=== PATIENT | male | born 1950 | race Caucasian/White ===

== ENCOUNTER 2017-06-25 13:26 | Emergency (ER) | payer MEDICAID, MEDICARE ==
[2017-06-25 14:38] LABS: ABSOLUTE BASOPHILS # (AUTO) 0.1 10^3/uL (0.0-0.2); ABSOLUTE EOSINOPHILS # (AUTO) 0.3 10^3/uL (0.0-0.6); ABSOLUTE LYMPHOCYTES (AUTO) 1.2 10^3/uL (0.5-4.7); ABSOLUTE MONOCYTES (AUTO) 0.8 10^3/uL (0.1-1.4); ABSOLUTE NEUT (AUTO) 5.2 10^3/uL (1.7-8.2); BASOPHILS % (AUTO) 0.9 % (0-2); EOSINOPHILS % (AUTO) 4.6 % (0-6); HEMATOCRIT 40.9 % (37.9-51.0); HEMOGLOBIN 13.5 g/dL (13.5-17.0); LYMPHOCYTES % (AUTO) 16.1 % (13-45); MEAN CORPUSCULAR HEMOGLOBIN 26.6 pg (27.0-33.4); MEAN CORPUSCULAR HGB CONC 32.9 g/dL (32.0-36.0); MEAN CORPUSCULAR VOLUME 81 fl (80-97); MONOCYTES % (AUTO) 10.1 % (3-13); PLATELET COUNT 189 10^3/uL (150-450); RED BLOOD COUNT 5.07 10^6/uL (4.35-5.55); RED CELL DISTRIBUTION WIDTH 14.9 % (11.5-14.0); SEGMENTED NEUTROPHILS % (AUTO) 68.3 % (42-78); TOTAL CELLS COUNTED % (AUTO) 100 %; WHITE BLOOD COUNT 7.6 10^3/uL (4.0-10.5)
[2017-06-25 14:59] LABS: ANION GAP 12 (5-19); BLOOD UREA NITROGEN 14 mg/dL (7-20); CALCIUM 9.6 mg/dL (8.4-10.2); CARBON DIOXIDE 25 mmol/L (22-30); CHLORIDE 102 mmol/L (98-107); GLUCOSE 173 mg/dL (75-110); POTASSIUM 4.1 mmol/L (3.6-5.0); SODIUM 138.8 mmol/L (137-145)
--- NOTE | 2017-06-25 15:24 | ER Document Report ---
ED Extremity Problem, Lower - General Chief Complaint: Leg Swelling Stated Complaint: POSSIBLE CLOT Time Seen by Provider: 06/25/17 14:03 Mode of Arrival: Ambulatory Information source: Patient Notes: Patient presents with right lower extremity bruising and swelling. He currently resides in a rehab facility. He denies any known injuries. He states the facility was concerned about a blood clot so they referred him here to the emergency department. He states he does have a dull ache just behind the right knee. It is constant. Nothing makes it better or worse. It does not radiate. He denies any chest pain or shortness of breath. TRAVEL OUTSIDE OF THE [place] IN LAST 30 DAYS: No - Related Data Allergies/Adverse Reactions: esomeprazole [From Nexium] Adverse Reaction (Verified 11/09/15 11:35) upset stomach Past Medical History - General Information source: Patient - Social History Smoking Status: Never Smoker Frequency of alcohol use: None Drug Abuse: None Family History: Reviewed & Not Pertinent Patient has suicidal ideation: No Patient has homicidal ideation: No - Past Medical History Cardiac Medical History: Reports: Hx Hypercholesterolemia, Hx Hypertension Pulmonary Medical History: Reports: Hx Sleep Apnea Endocrine Medical History: Reports: Hx Diabetes Mellitus Type 2 Renal/ Medical History: Denies: Hx Peritoneal Dialysis Musculoskeltal Medical History: Reports Hx Arthritis Psychiatric Medical History: Reports: Hx Depression Past Surgical History: Reports: Hx Appendectomy, Hx Cardiac Surgery - pacer, Hx Orthopedic Surgery - back, both knees, - Immunizations Hx Pneumococcal Vaccination: 05/08/15 Review of Systems - Review of Systems Constitutional: denies: Chills, Fever Cardiovascular: denies: Chest pain, Palpitations Respiratory: denies: Cough, Short of breath Physical Exam - Vital signs Vitals: Temp Pulse Resp BP Pulse Ox 98.7 F 87 20 160/80 H 95 06/25/17 13:30 06/25/17 13:30 06/25/17 13:30 06/25/17 13:30 06/25/17 13:30 Interpretation: Normal - General General appearance: Appears well, Alert In distress: None - HEENT Head: Normocephalic, Atraumatic Eyes: Normal Pupils: PERRL - Respiratory Respiratory status: No respiratory distress Chest status: Nontender Breath sounds: Normal Chest palpation: Normal - Cardiovascular Rhythm: Regular Heart sounds: Normal auscultation Murmur: No - Abdominal Inspection: Normal Distension: No distension Bowel sounds: Normal Tenderness: Nontender Organomegaly: No organomegaly - Back Back: Normal, Nontender - Extremities General upper extremity: Normal inspection, Nontender, Normal color, Normal ROM , Normal temperature General lower extremity: Nontender, Normal ROM, Normal temperature, Normal weight bearing, Other - Patient has diffuse nontender ecchymosis on the left inner upper thigh.. No: Namrata's sign - Neurological Neuro grossly intact: Yes Cognition: Normal Orientation: AAOx4 Dee Coma Scale Eye Opening: Spontaneous [place] Coma Scale Verbal: Oriented [place] Coma Scale Motor: Obeys Commands [place] Coma Scale Total: 15 Speech: Normal Sensory: Normal - Psychological Associated symptoms: Normal affect, Normal mood - Skin Skin Temperature: Warm Skin Moisture: Dry Skin Color: Normal Course - Vital Signs Vital signs: Temp Pulse Resp BP Pulse Ox 98.7 F 87 20 160/80 H 95 06/25/17 13:30 06/25/17 13:30 06/25/17 13:30 06/25/17 13:30 06/25/17 13:30 - Laboratory Result Diagrams: 06/25/17 14:20 06/25/17 14:20 Laboratory results interpreted by me: 06/25/17 06/25/17 14:20 14:20 MCH 26.6 L RDW 14.9 H Glucose 173 H - Diagnostic Test Radiology reviewed: Image reviewed, Reports reviewed - Doppler ultrasound was reviewed and shows no evidence of DVT. Discharge - Discharge Clinical Impression: Contusion of right leg Qualifiers: Encounter type: initial encounter Qualified Code(s): S80.11XA - Contusion of right lower leg, initial encounter Condition: Stable Disposition: HOME, SELF-CARE Instructions: Contusion ([facility])
[2017-06-25 15:55] VITALS: BP 148/85
--- NOTE | 2017-06-25 15:56 | RADIOLOGY REPORT (SQ) ---
EXAM DESCRIPTION: VENOUS UNILATERAL LOWER COMPLETED DATE/TIME: 06/25/2017 3:32 pm REASON FOR STUDY: right leg swelling/apin COMPARISON: None. TECHNIQUE: Dynamic and static hilton scale and color images acquired of the right leg venous system. S elected spectral images acquired with additional compression and augmentation maneuvers. The contrala teral common femoral vein and saphenofemoral junction were also imaged. Images stored on PACS. LIMITATIONS: None. FINDINGS: RIGHT COMMON FEMORAL: Normal phasicity, compression and augmentation. No visualized echogenic material on g ray scale. No defects on color images. FEMORAL: Normal compression and augmentation. No visualized echogenic material on hilton scale. No defe cts on color images. POPLITEAL: Normal compression, augmentation. No visualized echogenic material on hilton scale. No defec ts on color images. CALF VESSELS: Normal compression, augmentation. No visualized echogenic material on hilton scale. No de fects on color images. GSV and SSV: Normal compression, augmentation. No visualized echogenic material on hilton scale. No def ects on color images. ANY DEEP VENOUS INSUFFICIENCY: Not evaluated. ANY EVIDENCE OF POPLITEAL CYST: No. OTHER: No other significant finding. LEFT COMMON FEMORAL VEIN AND SAPHENOFEMORAL JUNCTION: Normal phasicity, compression and augmentation. No visualized echogenic material on hilton scale. No de fects on color images. IMPRESSION: NO EVIDENCE OF DVT OR SVT IN THE RIGHT LEG. TECHNICAL DOCUMENTATION: JOB ID: [id number] [employer]- All Rights Reserved Reading location - IP/workstation name: [facility]
== END 2017-06-25 16:18 | disposition home or self-care (01) ==
LOC: ER 13:26
DX: S80.11XA Contusion of right lower leg, initial encounter (principal); X58.XXXA Exposure to other specified factors, initial encounter; R58 Hemorrhage, not elsewhere classified; E11.9 Type 2 diabetes mellitus without complications; I10 Essential (primary) hypertension
CPT/HCPCS: 36415; 80048; 85025; 93971; 99284

== ENCOUNTER 2017-07-07 21:37 | Emergency (ER) | payer MEDICAID, MEDICARE ==
[2017-07-07 22:22] LABS: HEMATOCRIT 39.2 % (37.9-51.0); HEMOGLOBIN 13.2 g/dL (13.5-17.0); MEAN CORPUSCULAR HEMOGLOBIN 26.9 pg (27.0-33.4); MEAN CORPUSCULAR HGB CONC 33.6 g/dL (32.0-36.0); MEAN CORPUSCULAR VOLUME 80 fl (80-97); PLATELET COUNT 174 10^3/uL (150-450); RED CELL DISTRIBUTION WIDTH 14.6 % (11.5-14.0); WHITE BLOOD COUNT 8.2 10^3/uL (4.0-10.5)
[2017-07-07 22:41] LABS: ANION GAP 10 (5-19); BLOOD UREA NITROGEN 19 mg/dL (7-20); CALCIUM 9.3 mg/dL (8.4-10.2); CARBON DIOXIDE 27 mmol/L (22-30); CHLORIDE 100 mmol/L (98-107); GLUCOSE 156 mg/dL (75-110); SODIUM 136.5 mmol/L (137-145)
--- NOTE | 2017-07-07 22:49 | RADIOLOGY REPORT (SQ) ---
EXAM DESCRIPTION: CHEST SINGLE VIEW COMPLETED DATE/TIME: 07/07/2017 10:33 pm REASON FOR STUDY: cp COMPARISON: 11/09/2015 EXAM PARAMETERS: NUMBER OF VIEWS: One view. TECHNIQUE: Single frontal radiographic view of the chest acquired. RADIATION DOSE: NA LIMITATIONS: None. FINDINGS: LUNGS AND PLEURA: No opacities, masses or pneumothorax. No pleural effusion. MEDIASTINUM AND HILAR STRUCTURES: No masses. Contour normal. HEART AND VASCULAR STRUCTURES: Heart normal in size. Normal vasculature. BONES: No acute findings. HARDWARE: Cardiac pacer. OTHER: No other significant finding. IMPRESSION: NO ACUTE RADIOGRAPHIC FINDING IN THE CHEST. TECHNICAL DOCUMENTATION: JOB ID: [id number] [employer]- All Rights Reserved Reading location - IP/workstation name: [email or web address]
--- NOTE | 2017-07-08 00:15 | ER Document Report ---
ED General - General Chief Complaint: Chest Pain Stated Complaint: CHEST PAIN Time Seen by Provider: 07/07/17 21:45 Notes: Patient is a 67 year old male with a past medical history of recurrent chest pain, hypertension, hyperlipidemia, diabetes, recently evaluated for a stress test by Dr. Sinha in May with a normal result who presents with chest pain that started at approximately 7 PM and resolved by 830. He states the pain was a stabbing, sharp pain over the left side of his chest with radiation to the left upper extremity. Nothing improves or worsen the pain when present. It did resolve spontaneously. He denies any associated shortness of breath, nausea or vomiting. He states that he has recurrent episodes of chest pain very similar to this. He notes that it has been worse since he was discontinued off of his antacid therapy. He denies any chest pain at the time of my assessment. Patient has had 3 cardiac catheterizations since 2008 none of which have shown any coronary artery disease. TRAVEL OUTSIDE OF THE [place] IN LAST 30 DAYS: No - Related Data Allergies/Adverse Reactions: esomeprazole [From Nexium] Adverse Reaction (Verified 11/09/15 11:35) upset stomach Past Medical History - General Information source: Patient - Social History Smoking Status: Former Smoker Chew tobacco use (# tins/day): No Frequency of alcohol use: None Drug Abuse: None Lives with: [facility] Family History: Reviewed & Not Pertinent Patient has suicidal ideation: No Patient has homicidal ideation: No - Past Medical History Cardiac Medical History: Reports: Hx Hypercholesterolemia, Hx Hypertension Pulmonary Medical History: Reports: Hx Sleep Apnea Endocrine Medical History: Reports: Hx Diabetes Mellitus Type 2 Renal/ Medical History: Denies: Hx Peritoneal Dialysis Musculoskeltal Medical History: Reports Hx Arthritis Psychiatric Medical History: Reports: Hx Depression Past Surgical History: Reports: Hx Appendectomy, Hx Cardiac Surgery - pacer, Hx Orthopedic Surgery - back, both knees, - Immunizations Hx Pneumococcal Vaccination: 05/08/15 Review of Systems - Review of Systems Notes: Constitutional: Negative for fever. HENT: Negative for sore throat. Eyes: Negative for visual changes. Cardiovascular: Positive for chest pain. Respiratory: Negative for shortness of breath. Gastrointestinal: Negative for abdominal pain, vomiting or diarrhea. Genitourinary: Negative for dysuria. Musculoskeletal: Negative for back pain. Skin: Negative for rash. Neurological: Negative for headaches, weakness or numbness. 10 point ROS negative except as marked above and in HPI. Physical Exam - Vital signs Vitals: Resp Pulse Ox 16 93 07/07/17 21:57 07/07/17 21:57 Interpretation: Normal Notes: PHYSICAL EXAMINATION: GENERAL: Well-appearing, well-nourished and in no acute distress. HEAD: Atraumatic, normocephalic. EYES: Pupils equal round and reactive to light, extraocular movements intact, sclera anicteric, conjunctiva are normal. ENT: nares patent, oropharynx clear without exudates. Moist mucous membranes. NECK: Normal range of motion, supple without lymphadenopathy LUNGS: Breath sounds clear to auscultation bilaterally and equal. No wheezes rales or rhonchi. HEART: Regular rate and rhythm without murmurs ABDOMEN: Soft, nontender, normoactive bowel sounds. No guarding, no rebound. No masses appreciated. EXTREMITIES: Normal range of motion, no pitting or edema. No cyanosis. NEUROLOGICAL: No focal neurological deficits. Moves all extremities spontaneously and on command. PSYCH: Normal mood, normal affect. SKIN: Warm, Dry, normal turgor, no rashes or lesions noted. Course - Re-evaluation Re-evalutation: 07/08/17 00:13 Presentation of chest pain in an otherwise well appearing patient. Low clinical suspicion for ACS given clinical history, exam, EKG without ST elevations or depressions, and negative initial troponin. Patient had a normal stress test less than 2 months ago and has had 3 negative cardiac caths in the last 8 years. PE also seems unlikely given clinical history, absence of tachycardia or dyspnea. Well's score is 0. CXR without evidence of pneumothorax or pneumonia. No widened mediastinum. Aortic dissection also seems unlikely given history, symmetric pulses, CXR, and vitals. Will obtain repeat delta troponin and if this remains normal plan for discharge. 07/08/17 02:21 Troponin remains normal. Patient remains chest pain-free. At this time will discharge with return precautions and follow-up recommendations. Verbal discharge instructions given a the bedside and opportunity for questions given. Medication warnings reviewed. Patient is in agreement with this plan and has verbalized understanding of return precautions and the need for primary care follow-up in the next 24-72 hours. - Vital Signs Vital signs: Temp Pulse Resp BP Pulse Ox 20 121/75 96 07/07/17 23:01 07/07/17 23:01 07/07/17 23:01 - Laboratory Result Diagrams: 07/07/17 22:11 07/07/17 22:11 Laboratory results interpreted by me: 07/07/17 07/07/17 22:11 22:11 Hgb 13.2 L MCH 26.9 L RDW 14.6 H Sodium 136.5 L Glucose 156 H - Diagnostic Test Radiology reviewed: Image reviewed, Reports reviewed Radiology results interpreted by me: 07/08/17 00:14 Chest x-ray: No acute infiltrate or pneumothorax - EKG Interpretation by Me Additional EKG results interpreted by me: 07/08/17 00:14 Sinus rhythm. Rate 75. No ST elevations or depressions. QTC is 441. Discharge - Discharge Clinical Impression: Chest pain Qualifiers: Chest pain type: unspecified Qualified Code(s): R07.9 - Chest pain, unspecified Condition: Good Disposition: HOME, SELF-CARE Additional Instructions: You were seen today for chest pain. The exact cause of your pain is unclear. However, based on your cardiac enzyme testing, chest x-ray, and EKG it does not appear that it is from an immediately life-threatening cause at this time. Although your testing here is normal is critical that you follow-up with your primary care physician for continued evaluation of this chest pain. I recommended you see your physician within the next 24-48 hours to be evaluated for consideration of a stress test. Please return to emergency department immediately if you have worsening of your chest pain, shortness of breath, vomiting, become unable to exert yourself due to pain or difficulty breathing, you pass out, or have any pain that radiates into your arms, jaw, or back. Please also return if you have any additional symptoms that are concerning to you.
[2017-07-08] MEDS ORDERED: FAMOTIDINE 20 MG TABLET PO ONE (02:21)
[2017-07-08 06:53] VITALS: BP 151/87
--- NOTE | 2017-07-08 10:48 | EKG REPORT ---
SEVERITY:- ABNORMAL ECG - SINUS RHYTHM IVCD, CONSIDER ATYPICAL RBBB LVH WITH IVCD AND SECONDARY REPOL ABNRM : Confirmed by: Nadege Sinha 08-Jul-2017 10:47:14
== END 2017-07-08 06:59 | disposition home or self-care (01) ==
LOC: ER 21:37
DX: R07.9 Chest pain, unspecified (principal); I10 Essential (primary) hypertension; E11.9 Type 2 diabetes mellitus without complications; Z87.891 Personal history of nicotine dependence
CPT/HCPCS: 93005; 99285; 36415; 85027; 80048; 84484; 71045; 93010; A9270

== ENCOUNTER → 2017-09-04 | Outpatient (CLI) | payer MEDICARE, MEDICAID ==
--- NOTE | 2017-09-04 15:48 | RADIOLOGY REPORT (SQ) ---
EXAM DESCRIPTION: CT LUMBAR SPINE WITHOUT COMPLETED DATE/TIME: 09/04/2017 3:12 pm REASON FOR STUDY: OTHER INTERVERTEBRAL DISC DEGENERATION, LUMBAR REGION M51.36 OTHER INTERVERTEBRAL DISC DEGENERATION, LUMBAR REGION COMPARISON: Lumbar spine five views 10/20/2015 TECHNIQUE: Axial images acquired through the lumbar spine without intravenous contrast. Images revi ewed with lung, soft tissue and bone windows. Reconstructed coronal and sagittal MPR images reviewed . All images stored on PACS. All CT scanners at this facility use dose modulation, iterative reconstruction, and/or weight based d osing when appropriate to reduce radiation dose to as low as reasonably achievable (ALARA). [facility]: Dose Right [facility]: CareDose [facility]: Dose Right [facility]: Teradose 4D [facility]: [employer] RADIATION DOSE: 30.3 mGy. LIMITATIONS: None. FINDINGS: SEGMENTATION: Normal. No transitional anatomy. ALIGNMENT: 25% anterolisthesis of L4 over L5 is present, stabilized with bilateral transpedicular scr ews and dorsal fixation plates. Mild retrolisthesis of L1 over L2. VERTEBRAL BODIES: No fractures. No dislocation. No acute findings. DISCS: T11-12 is unremarkable. At T12-L1, mild diffuse posterior disc bulge and bony spurring is present left greater than right. M ild bilateral facet hypertrophy. Borderline central canal narrowing. Moderate bilateral foraminal n arrowing. At L1-2, mild diffuse posterior disc bulge and bony spurring and mild bilateral facet and ligament hy pertrophy are present with mild central canal narrowing. Moderate to high-grade bilateral foraminal narrowing is present. At L2-3, mild diffuse posterior disc bulge and bony spurring, mild bilateral facet hypertrophy is pre sent with an old calcified right paracentral disc protrusion/herniation. This causes mild central ca nal narrowing, and flattening of the thecal sac near the takeoff of the right proximal L3 nerve root. Elsewhere at L2-3, there is moderate right and mild left foraminal narrowing without definite exiti ng L2 nerve root impingement. At L3-4, borderline central canal narrowing results from broad diffuse disc bulge and mild facet and ligament hypertrophy. No significant foraminal encroachment. At L4-5, patient is post fusion with bone graft material, transpedicular screws and dorsal fixation p lates. There is 25% anterolisthesis of L4 over L5 with moderate right and high-grade left foraminal stenosis from bony spurring. At L5-S1, disc space loss of height is present with broad diffuse posterior disc bulging. Mild bilat eral facet hypertrophy. No central stenosis. Moderate right, moderate left foraminal narrowing. PEDICLES, TRANSVERSE PROCESSES: No fractures. No dislocation. No acute findings. FACETS, POSTERIOR ELEMENTS: No fractures. No dislocation. HARDWARE: Fusion hardware at L4-5 VISUALIZED RIBS: No fractures. SOFT TISSUES: No significant or acute finding in adjacent soft tissues. OTHER: No other significant finding. IMPRESSION: Multilevel degenerative changes as above. Postsurgical changes at L4-5. TECHNICAL DOCUMENTATION: JOB ID: [id number] Quality ID # [id number]: Final reports with documentation of one or more dose reduction techniques (e.g., Au tomated exposure control, adjustment of the mA and/or kV according to patient size, use of iterative reconstruction technique) 2010 [employer]- All Rights Reserved Reading location - IP/workstation name: [facility]
== END ==
LOC: RAD 14:16
PROVIDERS: ATTEND Physician Assistant
DX: M51.36 Other intervertebral disc degeneration, lumbar region (principal); G62.9 Polyneuropathy, unspecified
CPT/HCPCS: 72131

== ENCOUNTER 2017-12-11 08:22 | Emergency (ER) | payer MEDICARE, MEDICAID ==
--- NOTE | 2017-12-11 09:35 | ER Document Report ---
ED Medical Screen (RME) - General Chief Complaint: Medication Refill Stated Complaint: SUICIDAL IDEATIONS Time Seen by Provider: 12/11/17 09:30 Notes: Patient is here because he is out of all of his medications. Patient says he was a resident in [facility] locally for about 6 months and signed himself out of the facility last Friday, 6 days ago, because he thought he could manage alone on his own at home. When he signed himself out, they did not write for any of his medications because they said they thought he was delusional. Therefore, he has been 6 days without any medicines. Patient has a history of NIDDM, Parkinson's disease, hypertension, high cholesterol. Patient says he has no history of any psychiatric diseases. Has given passing thoughts of suicide in the past so as not to be a bother to his son, but does not present with suicidal ideation is 1 of his thoughts today. TRAVEL OUTSIDE OF THE [place] IN LAST 30 DAYS: No - Related Data Allergies/Adverse Reactions: esomeprazole [From Nexium] Adverse Reaction (Verified 11/09/15 11:35) upset stomach Past Medical History - Past Medical History Cardiac Medical History: Reports: Hx Hypercholesterolemia, Hx Hypertension Pulmonary Medical History: Reports: Hx Sleep Apnea Endocrine Medical History: Reports: Hx Diabetes Mellitus Type 2 Renal/ Medical History: Denies: Hx Peritoneal Dialysis Musculoskeltal Medical History: Reports Hx Arthritis Psychiatric Medical History: Reports: Hx Depression Past Surgical History: Reports: Hx Appendectomy, Hx Cardiac Surgery - pacer, Hx Orthopedic Surgery - back, both knees, Doctor's Discharge - Discharge Referrals: JOSEPH JOSEPH DO [Primary Care Provider] - Follow up as needed
--- NOTE | 2017-12-11 10:32 | ER Document Report ---
ED General - General Chief Complaint: Medication Refill Stated Complaint: SUICIDAL IDEATIONS Time Seen by Provider: 12/11/17 09:30 Information source: Patient Notes: Patient is a 67-year-old male who presents here secondary to medication refill request. Patient supposedly was at the [facility] until 6 days ago when he voluntarily signed himself out. Cord to the patient's report he states that they did not fill his medications because they thought he was "delusional". Patient currently denies any suicidal or homicidal ideations. TRAVEL OUTSIDE OF THE [place] IN LAST 30 DAYS: No - Related Data Allergies/Adverse Reactions: esomeprazole [From Nexium] Adverse Reaction (Verified 11/09/15 11:35) upset stomach Past Medical History - Social History Smoking Status: Never Smoker Chew tobacco use (# tins/day): No Family History: Reviewed & Not Pertinent - Past Medical History Cardiac Medical History: Reports: Hx Hypercholesterolemia, Hx Hypertension Pulmonary Medical History: Reports: Hx Sleep Apnea Endocrine Medical History: Reports: Hx Diabetes Mellitus Type 2 Renal/ Medical History: Denies: Hx Peritoneal Dialysis Musculoskeletal Medical History: Reports Hx Arthritis Psychiatric Medical History: Reports: Hx Depression Past Surgical History: Reports: Hx Appendectomy, Hx Cardiac Surgery - pacer, Hx Orthopedic Surgery - back, both knees, - Immunizations Hx Pneumococcal Vaccination: 05/08/15 Physical Exam - Vital signs Vitals: Temp Pulse Resp BP Pulse Ox 97.4 F 78 18 167/77 H 95 12/11/17 10:16 12/11/17 10:16 12/11/17 10:16 12/11/17 10:16 12/11/17 10:16 Course - Re-evaluation Re-evalutation: Given the above history and physical examination, we will call case management, obtain basic labs, and reassess the patient. Patient currently has no complaints of chest or abdominal pain. No headache, weakness, or lightheadedness. No focal neurological deficits on my initial examination. 12/11/17 10:31 EKG shows heart of 63, normal sinus rhythm, left ventricular hypertrophy, inverted T waves laterally. 12/11/17 10:33 I have reviewed the patient's previous EKG on July 2017 showing no appreciable change. Labs as recorded. They are attempting to find placement for the patient. We have restarted the patient's medications. - Vital Signs Vital signs: Temp Pulse Resp BP Pulse Ox 97.4 F 64 18 147/71 H 93 12/11/17 10:16 12/11/17 15:40 12/11/17 10:16 12/11/17 15:40 12/11/17 15:40 - Laboratory Result Diagrams: 12/11/17 10:00 12/11/17 10:00 Laboratory results interpreted by me: 12/11/17 12/11/17 12/11/17 09:48 10:00 10:00 RDW 14.8 H Glucose 162 H Urine Glucose (UA) >=1000 H Urine Urobilinogen 2.0 H Salicylates Acetaminophen 12/11/17 10:00 RDW Glucose Urine Glucose (UA) Urine Urobilinogen Salicylates < 1.0 L Acetaminophen < 10 L Discharge - Discharge Referrals: JOSEPH JOSEPH DO [NO LOCAL MD] - Follow up as needed
[2017-12-11 10:41] LABS: ABSOLUTE EOSINOPHILS # (AUTO) 0.1 10^3/uL (0.0-0.6); ABSOLUTE LYMPHOCYTES (AUTO) 1.2 10^3/uL (0.5-4.7); ABSOLUTE MONOCYTES (AUTO) 0.8 10^3/uL (0.1-1.4); ABSOLUTE NEUT (AUTO) 6.6 10^3/uL (1.7-8.2); BASOPHILS % (AUTO) 0.5 % (0-2); EOSINOPHILS % (AUTO) 1.3 % (0-6); HEMATOCRIT 44.1 % (37.9-51.0); HEMOGLOBIN 14.9 g/dL (13.5-17.0); LYMPHOCYTES % (AUTO) 13.5 % (13-45); MEAN CORPUSCULAR HEMOGLOBIN 27.3 pg (27.0-33.4); MEAN CORPUSCULAR HGB CONC 33.8 g/dL (32.0-36.0); MEAN CORPUSCULAR VOLUME 81 fl (80-97); MONOCYTES % (AUTO) 9.1 % (3-13); PLATELET COUNT 186 10^3/uL (150-450); RED BLOOD COUNT 5.46 10^6/uL (4.35-5.55); RED CELL DISTRIBUTION WIDTH 14.8 % (11.5-14.0); SEGMENTED NEUTROPHILS % (AUTO) 75.6 % (42-78); TOTAL CELLS COUNTED % (AUTO) 100 %; WHITE BLOOD COUNT 8.8 10^3/uL (4.0-10.5)
[2017-12-11 10:59] LABS: ALANINE AMINOTRANSFERASE 26 U/L (21-72); ALBUMIN 4.4 g/dL (3.5-5.0); ALKALINE PHOSPHATASE 74 U/L (38-126); ANION GAP 10 (5-19); ASPARTATE AMINO TRANSFERASE 20 U/L (17-59); BILIRUBIN,DIRECT 0.2 mg/dL (0.0-0.4); BILIRUBIN,TOTAL 0.6 mg/dL (0.2-1.3); BLOOD UREA NITROGEN 15 mg/dL (7-20); CALCIUM 9.5 mg/dL (8.4-10.2); CARBON DIOXIDE 24 mmol/L (22-30); CHLORIDE 103 mmol/L (98-107); GLUCOSE 162 mg/dL (75-110); POTASSIUM 4.6 mmol/L (3.6-5.0); SODIUM 137.3 mmol/L (137-145); TOTAL PROTEIN 7.2 g/dL (6.3-8.2)
--- NOTE | 2017-12-11 11:14 | ER Document Report ---
ED General - General Chief Complaint: Medication Refill Stated Complaint: SUICIDAL IDEATIONS Time Seen by Provider: 12/11/17 09:30 Information source: Patient Notes: 67-year-old male with past medical history as recorded who presents today stating that he willingly left the [facility] 6 days ago. Patient states he had a nose that he had hired in [place] that he had met online that was going to come take care of him. Patient states over the last few days she has gotten a better offer [facility] to teach so therefore is not coming to this location. Patient states that they did not provide any medications upon his leaving the previous facility secondary to what he states was "the providers concerned that I was having delusions and possibly was suicidal". Patient denies any headache, neck pain, chest pain, abdominal pain, weakness or numbness. He states that he does not feel that he is fit to take care of himself. Patient states he does not want to be a burden to his son who is local because his son also has medical problems. He also states that he has thoughts of injuring himself by overdosing on medications if he has no other options. TRAVEL OUTSIDE OF THE [place] IN LAST 30 DAYS: No - HPI Onset: Other - See above Quality of pain: No pain Severity: None Pain Level: Denies Associated symptoms: Other - See above Exacerbated by: Denies Relieved by: Denies Similar symptoms previously: Yes Recently seen / treated by doctor: Yes - Related Data Allergies/Adverse Reactions: esomeprazole [From Nexium] Adverse Reaction (Verified 11/09/15 11:35) upset stomach Past Medical History - General Information source: Patient - Social History Smoking Status: Unknown if Ever Smoked Cigarette use (# per day): No Chew tobacco use (# tins/day): No Family History: Reviewed & Not Pertinent - Past Medical History Cardiac Medical History: Reports: Hx Hypercholesterolemia, Hx Hypertension Pulmonary Medical History: Reports: Hx Sleep Apnea Endocrine Medical History: Reports: Hx Diabetes Mellitus Type 2 Renal/ Medical History: Denies: Hx Peritoneal Dialysis Musculoskeletal Medical History: Reports Hx Arthritis Psychiatric Medical History: Reports: Hx Depression Past Surgical History: Reports: Hx Appendectomy, Hx Cardiac Surgery - pacer, Hx Orthopedic Surgery - back, both knees, - Immunizations Hx Pneumococcal Vaccination: 05/08/15 Review of Systems - Review of Systems Constitutional: denies: Fever EENT: denies: Eye discharge, Nose discharge Respiratory: denies: Short of breath Gastrointestinal: denies: Vomiting Genitourinary: denies: Dysuria Musculoskeletal: denies: Leg swelling Skin: Other - no hives. denies: Rash Neurological/Psychological: Other - no slurred speech -: Yes All other systems reviewed and negative Physical Exam - Vital signs Vitals: Temp Pulse Resp BP Pulse Ox 97.4 F 78 18 167/77 H 95 12/11/17 10:16 12/11/17 10:16 12/11/17 10:16 12/11/17 10:16 12/11/17 10:16 Notes: Reviewed vital signs and nursing note as charted by RN. CONSTITUTIONAL: Alert and oriented and responds appropriately to questions. Well -appearing; well-nourished HEAD: Normocephalic; atraumatic EYES: PERRL; patient has some mild left eye lateral deviation consistent with prior surgery and medical history ENT: Normal nose; no rhinorrhea; moist mucous membranes; pharynx without lesions noted NECK: Supple without meningismus; non-tender; carotid bruits; no cervical lymphadenopathy, no masses CARD: Regular rate and rhythm; no murmurs, no gallops; symmetric distal pulses RESP: Normal chest excursion without splinting or tachypnea; breath sounds clear and equal bilaterally ABD/GI: Normal bowel sounds; non-distended; soft, non-tender BACK: The back appears normal and is non-tender to palpation, there is no CVA tenderness EXT: Normal ROM in all joints; non-tender to palpation; no cyanosis, no effusions, no edema SKIN: Small healing abrasions to bilateral shins with the patient states she sustained when moving into his new apartment NEURO: Moves all extremities equally; Motor and sensory function intact PSYCH: The patient's mood and manner are appropriate. Grooming and personal hygiene are appropriate. Course - Re-evaluation Re-evalutation: 12/11/17 11:14 Given the history and physical examination, the patient currently oriented 4, we will attempt to find the patient's medication list and restart the medications. I have consulted social work in order the basic psychiatric profile laboratory values and consult with the psychology team. We would like to find placement for this patient and start the patient back on his medications. 12/11/17 14:14 Labs as recorded. No change in exam. Social work and the psychology team are evaluating the patient. - Vital Signs Vital signs: Temp Pulse Resp BP Pulse Ox 97.4 F 78 18 167/77 H 95 12/11/17 10:16 12/11/17 10:16 12/11/17 10:16 12/11/17 10:16 12/11/17 10:16 - Laboratory Result Diagrams: 12/11/17 10:00 12/11/17 10:00 Laboratory results interpreted by me: 12/11/17 12/11/17 12/11/17 09:48 10:00 10:00 RDW 14.8 H Glucose 162 H Urine Glucose (UA) >=1000 H Urine Urobilinogen 2.0 H Salicylates Acetaminophen 12/11/17 10:00 RDW Glucose Urine Glucose (UA) Urine Urobilinogen Salicylates < 1.0 L Acetaminophen < 10 L Discharge - Discharge Referrals: JOSEPH JOSEPH DO [NO LOCAL MD] - Follow up as needed
[2017-12-11 11:15] LABS: ADD MANUAL MICROSCOPIC YES; APPEARANCE,URINE CLEAR; BILIRUBIN,URINE NEGATIVE (NEGATIVE); COLOR,URINE YELLOW; GLUCOSE, URINE >=1000 mg/dL (NEGATIVE); KETONES,URINE NEGATIVE (NEGATIVE); LEUKOCYTE ESTERASE,URINE NEGATIVE (NEGATIVE); NITRITE,URINE NEGATIVE (NEGATIVE); PROTEIN,URINE NEGATIVE (NEGATIVE); URINE SPECIFIC GRAVITY 1.033
[2017-12-11 11:17] LABS: WBC,URINE RARE /HPF
[2017-12-11 11:27] LABS: ACETAMINOPHEN < 10 ug/mL (10-30); ALCOHOL < 10 mg/dL (NONE DETECTED); SALICYLATE < 1.0 mg/dL (2.0-20.0)
[2017-12-11 11:44] LABS: URINE AMPHETAMINES SCREEN NEGATIVE; URINE BARBITURATES SCREEN NEGATIVE; URINE BENZODIAZEPINES SCREEN NEGATIVE; URINE COCAINE SCREEN NEGATIVE; URINE MARIJUANA (THC) SCREEN NEGATIVE; URINE METHADONE SCREEN NEGATIVE; URINE PHENCYCLIDINE SCREEN NEGATIVE
--- NOTE | 2017-12-11 15:43 | PSYCHOLOGICAL NOTE ---
Psych Note - Psych Note Psych Note: Reason for Consult: Suicidal ideation Patient says he has no history of any psychiatric diseases. Has given passing thoughts of suicide in the past so as not to be a bother to his son, but does not present with suicidal ideation is 1 of his thoughts today. Patient disclosed in the past he has had passing thoughts of hurting himself but is never had a plan. He reports that he has had some bad dreams so he admits to wanting to hurt himself so he does not have the dreams anymore. Patient denies having current thoughts of wanting to hurt himself but does feel that he is a burden to his son. He reports that his son never came to visit him while he was in the facility. He confirms he was in assisted living when he signed himself out because he had talked with a provider online and he thought that they would be coming to help him in his home however that fell through. He reports that upon his discharge they would not sign off on any medications because "she said I was delusional." He disclosed that he does not feel that he is delusional that he knows that he talk to the person online never in person so admits that possibly is not smartest but thought that he could handle it. He reports that he is unable to care for himself and has not had any medications in the last 6 days. Patient is alert and orientated to person, place, time and circumstance. Mood is dysphoric with flat affect. Patient denies current suicidal and homicidal ideation. Delusions are absent behaviors congruent with intact reality based presentation i.e. organized and linear thought process. Eye contact is well- maintained. Conversational speech was within normal rate, tone and prosody. Intellectual abilities appear to be within the average range. Attention and concentration are good. Insight, judgment, impulse control are fair. 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 Patient does not meet IVC criteria per [place] GS 122C. Patient discloses depression directly relating to his diagnosis with Parkinson's which has resulted in difficulty taking care of himself and having nightmares. Patient is already involved with social work instruments sales representative to assist with possible placement in assisted living again. Dr. Marques was consulted and the care and management this patient; attending physician is agreement with recommendations and disposition.
[2017-12-11] MEDS: CARBIDOPA/LEVODOPA 25-100 MG TABLET PO SCH ×2 (17:11→23:23)
[2017-12-11] MEDS: METFORMIN HCL 500 MG TABLET PO SCH (17:11)
[2017-12-11] MEDS: ROPINIROLE HCL 2 MG TABLET PO SCH (17:11)
[2017-12-11] MEDS ORDERED: ROPINIROLE HCL 4 MG PO SCH (18:00)
[2017-12-11] MEDS ORDERED: (PENDING PHARMACY ID) (Carbidopa/Levodopa [Carbidopa-Levo 25-100 Mg Odt] 1 EACH) PO SCH (18:00)
[2017-12-12] MEDS: GLIPIZIDE XL 5 MG TAB.ER.24 PO SCH (07:41)
[2017-12-12] MEDS: METOPROLOL SUCCINATE 50 MG TAB.SR.24H PO SCH (09:38)
[2017-12-12] MEDS: PIOGLITAZONE HCL 15 MG TABLET PO SCH (09:38)
[2017-12-12] MEDS ORDERED: TUBERCULIN,PURIF.PROT.DERIV. 5 TU/0.1 ML TEST 1 ML VIAL ID ONE (09:38)
[2017-12-12] MEDS: ROPINIROLE HCL 2 MG TABLET PO SCH ×3 (09:39→17:53)
[2017-12-12] MEDS: METFORMIN HCL 500 MG TABLET PO SCH ×2 (09:39→17:52)
[2017-12-12] MEDS: LOSARTAN POTASSIUM 50 MG TABLET PO SCH (09:39)
[2017-12-12] MEDS: CARBIDOPA/LEVODOPA 25-100 MG TABLET PO SCH ×4 (09:39→22:06)
--- NOTE | 2017-12-12 10:26 | ER Document Report ---
Doctor's Note Notes: 12/12/17 10:15 Rounds: Chart reviewed and patient interviewed. Patient is being evaluated for depression and he also has some medical conditions such as Parkinson's. Patient signed himself out of [facility], a local custodial, 6 days ago. He has found that he is unable to take care of himself. He was not provided with any of his medications when he signed himself out. Patient's vital signs are all essentially normal. His lab studies were also essentially normal. Patient appears to be medically stable for transfer or discharge. Nickolas Rodríguez MD
--- NOTE | 2017-12-12 13:21 | EKG REPORT ---
SEVERITY:- ABNORMAL ECG - SINUS RHYTHM IVCD, CONSIDER ATYPICAL RBBB LAFB LVH WITH IVCD AND SECONDARY REPOL ABNRM : Confirmed by: Warren Moore MD 12-Dec-2017 13:20:42
[2017-12-12] MEDS: ATORVASTATIN CALCIUM 80 MG TABLET PO SCH (22:06)
[2017-12-13] MEDS: GLIPIZIDE XL 5 MG TAB.ER.24 PO SCH (08:56)
--- NOTE | 2017-12-13 10:35 | ER Document Report ---
Doctor's Note Notes: 12/13/17 10:35 67-year-old man with a history of [id number] diabetes, Parkinson disease who is currently waiting placement. He has been cleared medically and psychiatrically. His vital signs are stable. His labs were stable. He is currently in no distress.
[2017-12-13] MEDS: METFORMIN HCL 500 MG TABLET PO SCH ×2 (10:48→18:10)
[2017-12-13] MEDS: PIOGLITAZONE HCL 15 MG TABLET PO SCH (10:48)
[2017-12-13] MEDS: METOPROLOL SUCCINATE 50 MG TAB.SR.24H PO SCH (10:48)
[2017-12-13] MEDS: LOSARTAN POTASSIUM 50 MG TABLET PO SCH (10:48)
[2017-12-13] MEDS: CARBIDOPA/LEVODOPA 25-100 MG TABLET PO SCH ×4 (10:49→22:57)
[2017-12-13] MEDS: ROPINIROLE HCL 2 MG TABLET PO SCH ×3 (10:50→18:10)
[2017-12-13] MEDS: ATORVASTATIN CALCIUM 80 MG TABLET PO SCH (22:45)
[2017-12-13] MEDS ORDERED: CARBIDOPA/LEVODOPA 25-100 MG TABLET ONE (22:48)
[2017-12-14] MEDS: LOSARTAN POTASSIUM 50 MG TABLET PO SCH (09:13)
[2017-12-14] MEDS: GLIPIZIDE XL 5 MG TAB.ER.24 PO SCH (09:13)
[2017-12-14] MEDS: PIOGLITAZONE HCL 15 MG TABLET PO SCH (09:13)
[2017-12-14] MEDS: CARBIDOPA/LEVODOPA 25-100 MG TABLET PO SCH ×4 (09:13→22:11)
[2017-12-14] MEDS: ROPINIROLE HCL 2 MG TABLET PO SCH ×3 (09:13→18:46)
[2017-12-14] MEDS: METOPROLOL SUCCINATE 50 MG TAB.SR.24H PO SCH (09:13)
[2017-12-14] MEDS: METFORMIN HCL 500 MG TABLET PO SCH ×2 (09:14→18:47)
--- NOTE | 2017-12-14 19:12 | ER Document Report ---
Doctor's Note Notes: 12/14/17 19:12 Remained stable. No issues.
[2017-12-14] MEDS: ATORVASTATIN CALCIUM 80 MG TABLET PO SCH (22:11)
[2017-12-14 22:15] VITALS: BP 128/74
[2017-12-15] MEDS: GLIPIZIDE XL 5 MG TAB.ER.24 PO SCH (08:23)
[2017-12-15] MEDS: CARBIDOPA/LEVODOPA 25-100 MG TABLET PO SCH ×2 (10:21→13:23)
[2017-12-15] MEDS: METFORMIN HCL 500 MG TABLET PO SCH (10:21)
[2017-12-15] MEDS: LOSARTAN POTASSIUM 50 MG TABLET PO SCH (10:21)
[2017-12-15] MEDS: ROPINIROLE HCL 2 MG TABLET PO SCH ×2 (10:21→13:23)
[2017-12-15] MEDS: METOPROLOL SUCCINATE 50 MG TAB.SR.24H PO SCH (10:21)
[2017-12-15] MEDS: PIOGLITAZONE HCL 15 MG TABLET PO SCH (11:03)
== END 2017-12-15 13:27 ==
LOC: ER 08:22
DX: F22 Delusional disorders (principal); G20 Parkinson's disease; F06.31 Mood disorder due to known physiological condition with depressive features; R53.1 Weakness; E11.8 Type 2 diabetes mellitus with unspecified complications; S80.812A Abrasion, left lower leg, initial encounter; S80.811A Abrasion, right lower leg, initial encounter; X58.XXXA Exposure to other specified factors, initial encounter; I10 Essential (primary) hypertension; Z95.0 Presence of cardiac pacemaker
CPT/HCPCS: 93005; 99285; 96372; 36415; 82962; 80307 ×4; 85025; 80053; 81001; 93010; A9270 ×34; J3490; G8978; G8979